=== PATIENT | male | born 1990 | race Caucasian/White ===

== ENCOUNTER 2016-08-30 14:57 | Emergency (ER) | payer BC, MEDICAID, OTHER ==
[2016-08-30] MEDS ORDERED: CEPHALEXIN 250 MG CAP As Ordered ONE (16:44)
[2016-08-30] MEDS ORDERED: IBUPROFEN 800 MG TAB As Ordered ONE (16:45)
[2016-08-30] MEDS ORDERED: ADACEL/BOOSTRIX VACCINE (DIPHTH/PERTUSS/ACELL/TETANUS)0.5ML SYR (90715) As Ordered ONE (16:45)
--- NOTE | 2016-08-30 17:36 | REP ---
RIGHT FINGERS, FOUR VIEWS: HISTORY: Trauma. There is no acute fracture or dislocation. The joint spaces are normal in appearance. IMPRESSION: There is no acute fracture or dislocation. Signed by Chance Camarena MD 08/31/2016 08:20 A
--- NOTE | 2016-08-30 18:29 | EDDOCDS ---
Nurse's Notes [facility] Name: Juan Antonio Flanagan Age: 25 yrs Sex: Male : 1990 Arrival Date: 08/30/2016 Time: 14:57 Bed I1 / M1 Private MD: NO PRIMARY PHYSICIAN, . Diagnosis: Laceration without foreign body of right index finger with damage to nail;Laceration without foreign body of right ring finger without damage to nail Presentation: 08/30 15:12 Presenting complaint: Patient states: "lacerations to the fingers from a snowblower" . ttb Occurred around 2pm. Right 3rd and 4th fingers. Bleeding controlled. NAD noted. Adult Sepsis Screening: The patient does not have new or worsening altered mentation. Patient's respiratory rate is less than 22. Systolic blood pressure is greater than 100. Patient has a qSOFA score of 0- Negative Sepsis Screen. Suicide/Homicide risk assessment- the patient denies having any suicidal and/or homicidal ideations and does not present with any other emotional, behavioral or mental health complaints. Status: Patient is not a college service officer or dependent. Transition of care: patient was not received from another setting of care. 15:12 Acuity: LIBAN Level 4 ttb 15:12 Method Of Arrival: Ambulance ttb Triage Assessment: 15:14 General: Appears in no apparent distress, well nourished, well groomed, Behavior is ttb appropriate for age, cooperative, pleasant. Pain: Location: right hand, fingers Pain currently is 2 out of 10 on a pain scale. HIV screening NA for this visit Offered previously. Neurological: Level of Consciousness is awake, alert. Cardiovascular: Chest pain is denied. Respiratory: No deficits noted. Airway is patent Respiratory effort is even, unlabored, Denies cough, shortness of breath. Derm: Skin is normal, pt states laceration to fingers. Musculoskeletal: Range of motion limited in right 3rd and 4th fingers per pt dt pain. 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 Historical: - Allergies: no known allergies; - Home Meds: 1. none - PMHx: none; - PSHx: skin graphs; - Social history: Smoking status: Patient uses tobacco products, heavy tobacco smoker. Patient/guardian denies using alcohol, street drugs, No barriers to communication noted, The patient speaks fluent [place] Island[place], Speaks appropriately for age. - Family history: Not pertinent. - : The pt / caregiver states he / she is not on anticoagulants. Home medication list is obtained from the patient. - Exposure Risk Screening:: None identified. - Tetanus status: unknown. Screenin:27 Screening information is obtained from the patient. Fall risk: No risks identified. rs3 Assistance ADL's: requires no assistance with activities of daily living. Abuse/DV Screen: The patient / caregiver reports he/she is: not in a situation that causes fear, pain or injury. Nutritional screening: No deficits noted. Advance Directives: Currently, there is no health care proxy. home support is adequate. Assessment: 18:24 General: Appears in no apparent distress, Behavior is appropriate for age. Pain: rs3 Location: right ring fingernail. Cardiovascular: Capillary refill < 3 seconds Heart tones S1 S2. Respiratory: Airway is patent Respiratory effort is even, unlabored. Derm: Skin is pink, warm & dry. laceration to right 4th finger around nail bed. bleeding controlled with pressure. Vital Signs: 14:59 BP 154 / 80; Pulse 101; Resp 18 S; Temp 97.8(O); Pulse Ox 98% ; Weight 129.27 kg (R); gr2 Height 6 ft. 1 in. (185.42 cm) (R); Pain 4/10; 18:24 Pain 0/10; rs3 18:26 BP 137 / 78; Pulse 92; Resp 18; Temp 98(T); Pulse Ox 99% on R/A; Pain 0/10; rs3 14:59 Body Mass Index 37.60 (129.27 kg, 185.42 cm) gr2 Vitals: 14:59 Log In Time: August 30, 2016 at 14:59. gr2 ED Course: 14:58 Patient visited by Camilla Palacios. gr2 14:58 NO PRIMARY PHYSICIAN, . is Private Physician. gr2 14:58 Patient moved to Waiting gr2 15:02 Patient visited by Camilla Palacios. gr2 15:02 Patient moved to Pre RCE gr2 15:13 Triage Initiated ttb 15:15 Patient visited by Lety Sargent RN. ttb 15:52 Patient moved to Triage 1 kr3 16:24 Merari Murphy PA-C is PHCP. ef1 16:24 Yoana Mcgovern MD is Attending Physician. ef1 16:24 Patient visited by Merari Murphy PA-C. ef1 16:45 Patient moved to I1 / M1 ef1 17:11 Patient visited by Geovanna Patel RN. rs3 17:13 [facility] Payment Agreement was scanned into [employer] and attached to record. zo 17:50 Patient visited by Merari Murphy PA-C. ef1 18:11 Patient visited by Merari Murphy PA-C. ef1 18:11 Fingers Returned. EDMS 18:16 [facility] is Referral Physician. ef1 18:16 [facility]. ef1 18:27 The patient / caregiver is instructed regarding the plan of care and ED course. rs3 18:27 No IV's were initiated during this patient's visit. No procedures done that require rs3 assistance. 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 Lot #: [id number]. } Route: IM; Site: right deltoid; 16:52 Drug: Cephalexin 500 mg [cephalexin 250 mg capsule (2 caps)] Route: PO; ka4 16:52 Drug: Ibuprofen 800 mg [ibuprofen 800 mg tablet (1 tabs)] Route: PO; ka4 18:24 Follow up: Pain 0/10 Adult rs3 18:21 Drug: Bacitracin 1 applic [bacitracin zinc 500 unit/gram topical ointment (1 applic)] rs3 Route: Topical; Site: affected area; Order Results: Radiology Order: Fingers Test: Fingers REASON FOR EXAMINATION: Trauma; RIGHT FINGERS, FOUR VIEWS:; ; HISTORY: Trauma.; ; There is no acute fracture or dislocation. The joint spaces are normal in; appearance.; ; IMPRESSION:; There is no acute fracture or dislocation.; ; ; ; Unreviewed; Outcome: 18:16 Discharge ordered by Provider. ef1 18:27 Discharge Assessment: patient administered narcotics - no. The following High Risk rs3 Discharge criteria are identified: None. Discharged to home with family. Condition: stable. Discharge instructions given to patient, Instructed on discharge instructions, follow up and referral plans. medication usage, Demonstrated understanding of instructions, medications, Pt was receptive of discharge instructions/ teaching. Prescriptions given X 2. No special radiology studies were completed. Property :Personal belongings accompany Pt. 18:28 Patient left the ED. rs3 Signatures: Dispatcher [employer] EDMS Gilda Koroma,RN RN kr3 Guido Olguin Erica, PA-C PADavid ef1 Geovanna Patel RN RN rs3 Lety Sargent RN RN Camilla Greene gr2 Talia Sanford LPN LPN ka4 JAMES
--- NOTE | 2016-08-30 18:29 | EDDOCDS ---
Physician Documentation [facility] Name: Juan Antonio Flanagan Age: 25 yrs Sex: Male : 1990 Arrival Date: 08/30/2016 Time: 14:57 Bed I1 / M1 Private MD: NO PRIMARY PHYSICIAN, . Disposition: 08/30/16 18:16 Discharged to Home/Self Care. Impression: Laceration without foreign body of right index finger with damage to nail, Laceration without foreign body of right ring finger without damage to nail. - Condition is Stable. - Discharge Instructions: Laceration Care, Adult, [id number]. - Prescriptions for Ibuprofen 800 mg Oral Tablet - take 1 tablet by ORAL route every 8 hours As needed take with food; 30 tablet. Keflex 500 mg Oral Capsule - take 1 capsule by ORAL route every 8 hours for 10 days; 30 capsule. - Medication Reconciliation, Referral List Call for Appointment, Local Pharmacy Hours form. - Follow up: [facility] ; When: 1 - 2 days; Reason: Recheck today's complaints, Continuance of care. Follow up: Emergency Department; Reason: Worsening of conditions. Follow up: [facility]; When: Call to arrange an appointment; Reason: Further diagnostic work-up, Recheck today's complaints, Continuance of care. - Problem is new. - Symptoms have improved. Historical: - Allergies: no known allergies; - Home Meds: 1. none - PMHx: none; - PSHx: skin graphs; - Social history: Smoking status: Patient uses tobacco products, heavy tobacco smoker. Patient/guardian denies using alcohol, street drugs, No barriers to communication noted, The patient speaks fluent Monegasque, Speaks appropriately for age. - Family history: Not pertinent. - : The pt / caregiver states he / she is not on anticoagulants. Home medication list is obtained from the patient. - Exposure Risk Screening:: None identified. - Tetanus status: unknown. Vital Signs: 08/30 14:59 BP 154 / 80; Pulse 101; Resp 18 S; Temp 97.8(O); Pulse Ox 98% ; Weight 129.27 kg / gr2 284.99 lbs (R); Height 6 ft. 1 in. (185.42 cm) (R); Pain 4/10; 18:24 Pain 0/10; rs3 18:26 BP 137 / 78; Pulse 92; Resp 18; Temp 98(T); Pulse Ox 99% on R/A; Pain 0/10; rs3 14:59 Body Mass Index 37.60 (129.27 kg, 185.42 cm) gr2 Procedures: 18:15 Wound care to laceration located on dorsal aspect of distal phalanx of right middle ef1 finger, dorsal aspect of distal phalanx of right ring finger, right middle fingernail and right ring fingernail was cleaned with Hibiclens, irrigated with normal saline, dressed with Neosporin, 4X4s, Patient tolerated well. 18:16 Fracture care/splinting: Splint applied to right ring fingernail and right middle ef1 fingernail using finger splint, applied by nurse. Examined by me, post splint application: neurovascular intact, 2+ distal pulses palpable, brisk capillary refill noted, Patient tolerated well. MDM: 16:36 Wound Care ordered. ef1 16:36 Cephalexin 500 mg PO once ordered. ef1 16:36 Ibuprofen 800 mg PO once ordered. ef1 16:36 Tetanus- Diptheria-Acellular Pertussis 0.5 ml IM once; Routine booster 10-64yrs, >64 ef1 with child contact [place] [employer] ordered. 16:38 Fingers Ordered. EDMS 17:03 Financial registration complete. zo 17:13 [facility] Payment Agreement was scanned into [employer] and attached to record. zo 18:14 Dressing ordered. ef1 18:14 Splint ordered. ef1 18:16 Bacitracin Ointment 500 unit/g 1 applic Topical in affected area once ordered. 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 Lot #: [id number]. } Route: IM; Site: right deltoid; 16:52 Drug: Cephalexin 500 mg [cephalexin 250 mg capsule (2 caps)] Route: PO; ka4 16:52 Drug: Ibuprofen 800 mg [ibuprofen 800 mg tablet (1 tabs)] Route: PO; ka4 18:24 Follow up: Pain 0/10 Adult rs3 18:21 Drug: Bacitracin 1 applic [bacitracin zinc 500 unit/gram topical ointment (1 applic)] rs3 Route: Topical; Site: affected area; Signatures: Dispatcher [employer] EDMS Guido Olguin Erica, PA-C PADavid ef1 Geovanna Patel RN RN rs3 Lety Sargent RN RN ttb Anderson, Kodie LPN ka4 The chart was reviewed and I authenticate all verbal orders and agree with the evaluation and treatment provided.Attachments: 17:13 [facility] Payment Agreement zo MTDD
--- NOTE | 2016-09-01 19:28 | EDDOCDS ---
Physician Documentation [facility] Name: Juan Antonio Flanagan Age: 25 yrs Sex: Male : 1990 Arrival Date: 08/30/2016 Time: 14:57 Bed I1 / M1 Private MD: NO PRIMARY PHYSICIAN, . Disposition: 08/30/16 18:16 Discharged to Home/Self Care. Impression: Laceration without foreign body of right index finger with damage to nail, Laceration without foreign body of right ring finger without damage to nail. - Condition is Stable. - Discharge Instructions: Laceration Care, Adult, [id number]. - Prescriptions for Ibuprofen 800 mg Oral Tablet - take 1 tablet by ORAL route every 8 hours As needed take with food; 30 tablet. Keflex 500 mg Oral Capsule - take 1 capsule by ORAL route every 8 hours for 10 days; 30 capsule. - Medication Reconciliation, Referral List Call for Appointment, Local Pharmacy Hours form. - Follow up: [facility] ; When: 1 - 2 days; Reason: Recheck today's complaints, Continuance of care. Follow up: Emergency Department; Reason: Worsening of conditions. Follow up: [facility]; When: Call to arrange an appointment; Reason: Further diagnostic work-up, Recheck today's complaints, Continuance of care. - Problem is new. - Symptoms have improved. Historical: - Allergies: no known allergies; - Home Meds: 1. none - PMHx: none; - PSHx: skin graphs; - Social history: Smoking status: Patient uses tobacco products, heavy tobacco smoker. Patient/guardian denies using alcohol, street drugs, No barriers to communication noted, The patient speaks fluent Kitt[place], Speaks appropriately for age. - Family history: Not pertinent. - : The pt / caregiver states he / she is not on anticoagulants. Home medication list is obtained from the patient. - Exposure Risk Screening:: None identified. - Tetanus status: unknown. Vital Signs: 08/30 14:59 BP 154 / 80; Pulse 101; Resp 18 S; Temp 97.8(O); Pulse Ox 98% ; Weight 129.27 kg / gr2 284.99 lbs (R); Height 6 ft. 1 in. (185.42 cm) (R); Pain 4/10; 18:24 Pain 0/10; rs3 18:26 BP 137 / 78; Pulse 92; Resp 18; Temp 98(T); Pulse Ox 99% on R/A; Pain 0/10; rs3 14:59 Body Mass Index 37.60 (129.27 kg, 185.42 cm) gr2 Procedures: 18:15 Wound care to laceration located on dorsal aspect of distal phalanx of right middle ef1 finger, dorsal aspect of distal phalanx of right ring finger, right middle fingernail and right ring fingernail was cleaned with Hibiclens, irrigated with normal saline, dressed with Neosporin, 4X4s, Patient tolerated well. 18:16 Fracture care/splinting: Splint applied to right ring fingernail and right middle ef1 fingernail using finger splint, applied by nurse. Examined by me, post splint application: neurovascular intact, 2+ distal pulses palpable, brisk capillary refill noted, Patient tolerated well. MDM: 16:36 Wound Care ordered. ef1 16:36 Cephalexin 500 mg PO once ordered. ef1 16:36 Ibuprofen 800 mg PO once ordered. ef1 16:36 Tetanus- Diptheria-Acellular Pertussis 0.5 ml IM once; Routine booster 10-64yrs, >64 ef1 with child contact [place] [employer] ordered. 16:38 Fingers Ordered. EDMS 17:03 Financial registration complete. zo 17:13 [facility] Payment Agreement was scanned into [employer] and attached to record. zo 18:14 Dressing ordered. ef1 18:14 Splint ordered. ef1 18:16 Bacitracin Ointment 500 unit/g 1 applic Topical in affected area once ordered. ef1 08/31 07:15 T-Sheet-- Draft Copy was scanned into [employer] and attached to record. gb 11:51 Radiology Report was scanned into [employer] and attached to record. 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 Lot #: [id number]. } Route: IM; Site: right deltoid; 16:52 Drug: Cephalexin 500 mg [cephalexin 250 mg capsule (2 caps)] Route: PO; ka4 16:52 Drug: Ibuprofen 800 mg [ibuprofen 800 mg tablet (1 tabs)] Route: PO; ka4 18:24 Follow up: Pain 0/10 Adult rs3 18:21 Drug: Bacitracin 1 applic [bacitracin zinc 500 unit/gram topical ointment (1 applic)] rs3 Route: Topical; Site: affected area; Signatures: Dispatcher [employer] EDMS Elaine Garrido, Reg Reg gb Jennings, Merari Stanley, PAAngelitaC PADavid ef1 Geovanna Patel RN RN rs3 Lety Sargent RN RN Talia Manuel LPN ka4 The chart was reviewed and I authenticate all verbal orders and agree with the evaluation and treatment provided.Attachments: 17:13 [facility] Payment Agreement zo 08/31 07:15 T-Sheet-- Draft Copy gb Chart Complete MTDD
--- NOTE | 2016-09-01 19:28 | EDDOCDS ---
Physician Documentation [facility] Name: Juan Antonio Flanagan Age: 25 yrs Sex: Male : 1990 Arrival Date: 08/30/2016 Time: 14:57 Bed I1 / M1 Private MD: NO PRIMARY PHYSICIAN, . Disposition: 08/30/16 18:16 Discharged to Home/Self Care. Impression: Laceration without foreign body of right index finger with damage to nail, Laceration without foreign body of right ring finger without damage to nail. - Condition is Stable. - Discharge Instructions: Laceration Care, Adult, [id number]. - Prescriptions for Ibuprofen 800 mg Oral Tablet - take 1 tablet by ORAL route every 8 hours As needed take with food; 30 tablet. Keflex 500 mg Oral Capsule - take 1 capsule by ORAL route every 8 hours for 10 days; 30 capsule. - Medication Reconciliation, Referral List Call for Appointment, Local Pharmacy Hours form. - Follow up: [facility] ; When: 1 - 2 days; Reason: Recheck today's complaints, Continuance of care. Follow up: Emergency Department; Reason: Worsening of conditions. Follow up: [facility]; When: Call to arrange an appointment; Reason: Further diagnostic work-up, Recheck today's complaints, Continuance of care. - Problem is new. - Symptoms have improved. Historical: - Allergies: no known allergies; - Home Meds: 1. none - PMHx: none; - PSHx: skin graphs; - Social history: Smoking status: Patient uses tobacco products, heavy tobacco smoker. Patient/guardian denies using alcohol, street drugs, No barriers to communication noted, The patient speaks fluent Tajik, Speaks appropriately for age. - Family history: Not pertinent. - : The pt / caregiver states he / she is not on anticoagulants. Home medication list is obtained from the patient. - Exposure Risk Screening:: None identified. - Tetanus status: unknown. Vital Signs: 08/30 14:59 BP 154 / 80; Pulse 101; Resp 18 S; Temp 97.8(O); Pulse Ox 98% ; Weight 129.27 kg / gr2 284.99 lbs (R); Height 6 ft. 1 in. (185.42 cm) (R); Pain 4/10; 18:24 Pain 0/10; rs3 18:26 BP 137 / 78; Pulse 92; Resp 18; Temp 98(T); Pulse Ox 99% on R/A; Pain 0/10; rs3 14:59 Body Mass Index 37.60 (129.27 kg, 185.42 cm) gr2 Procedures: 18:15 Wound care to laceration located on dorsal aspect of distal phalanx of right middle ef1 finger, dorsal aspect of distal phalanx of right ring finger, right middle fingernail and right ring fingernail was cleaned with Hibiclens, irrigated with normal saline, dressed with Neosporin, 4X4s, Patient tolerated well. 18:16 Fracture care/splinting: Splint applied to right ring fingernail and right middle ef1 fingernail using finger splint, applied by nurse. Examined by me, post splint application: neurovascular intact, 2+ distal pulses palpable, brisk capillary refill noted, Patient tolerated well. MDM: 16:36 Wound Care ordered. ef1 16:36 Cephalexin 500 mg PO once ordered. ef1 16:36 Ibuprofen 800 mg PO once ordered. ef1 16:36 Tetanus- Diptheria-Acellular Pertussis 0.5 ml IM once; Routine booster 10-64yrs, >64 ef1 with child contact [place] [employer] ordered. 16:38 Fingers Ordered. EDMS 17:03 Financial registration complete. zo 17:13 [facility] Payment Agreement was scanned into [employer] and attached to record. zo 18:14 Dressing ordered. ef1 18:14 Splint ordered. ef1 18:16 Bacitracin Ointment 500 unit/g 1 applic Topical in affected area once ordered. ef1 08/31 07:15 T-Sheet-- Draft Copy was scanned into [employer] and attached to record. gb 11:51 Radiology Report was scanned into [employer] and attached to record. 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 Lot #: [id number]. } Route: IM; Site: right deltoid; 16:52 Drug: Cephalexin 500 mg [cephalexin 250 mg capsule (2 caps)] Route: PO; ka4 16:52 Drug: Ibuprofen 800 mg [ibuprofen 800 mg tablet (1 tabs)] Route: PO; ka4 18:24 Follow up: Pain 0/10 Adult rs3 18:21 Drug: Bacitracin 1 applic [bacitracin zinc 500 unit/gram topical ointment (1 applic)] rs3 Route: Topical; Site: affected area; Signatures: Dispatcher [employer] EDMS Elaine Garrido, Reg Reg gb Scobey, Merari Stanley, PAAngelitaC PADavid ef1 Geovanna Patel RN RN rs3 Lety Sargent RN RN Talia Manuel LPN ka4 The chart was reviewed and I authenticate all verbal orders and agree with the evaluation and treatment provided.Attachments: 17:13 [facility] Payment Agreement zo 08/31 07:15 T-Sheet-- Draft Copy gb Chart Complete MTDD
--- NOTE | 2016-09-01 19:29 | EDDOCDS ---
Nurse's Notes [facility] Name: Juan Antonio Flanagan Age: 25 yrs Sex: Male : 1990 Arrival Date: 08/30/2016 Time: 14:57 Bed I1 / M1 Private MD: NO PRIMARY PHYSICIAN, . Diagnosis: Laceration without foreign body of right index finger with damage to nail;Laceration without foreign body of right ring finger without damage to nail Presentation: 08/30 15:12 Presenting complaint: Patient states: "lacerations to the fingers from a snowblower" . ttb Occurred around 2pm. Right 3rd and 4th fingers. Bleeding controlled. NAD noted. Adult Sepsis Screening: The patient does not have new or worsening altered mentation. Patient's respiratory rate is less than 22. Systolic blood pressure is greater than 100. Patient has a qSOFA score of 0- Negative Sepsis Screen. Suicide/Homicide risk assessment- the patient denies having any suicidal and/or homicidal ideations and does not present with any other emotional, behavioral or mental health complaints. Status: Patient is not a service agent or dependent. Transition of care: patient was not received from another setting of care. 15:12 Acuity: LIBAN Level 4 ttb 15:12 Method Of Arrival: Ambulance ttb Triage Assessment: 15:14 General: Appears in no apparent distress, well nourished, well groomed, Behavior is ttb appropriate for age, cooperative, pleasant. Pain: Location: right hand, fingers Pain currently is 2 out of 10 on a pain scale. HIV screening NA for this visit Offered previously. Neurological: Level of Consciousness is awake, alert. Cardiovascular: Chest pain is denied. Respiratory: No deficits noted. Airway is patent Respiratory effort is even, unlabored, Denies cough, shortness of breath. Derm: Skin is normal, pt states laceration to fingers. Musculoskeletal: Range of motion limited in right 3rd and 4th fingers per pt dt pain. Injury Description: cut fingers in vine pruner. Historical: - Allergies: no known allergies; - Home Meds: 1. none - PMHx: none; - PSHx: skin graphs; - Social history: Smoking status: Patient uses tobacco products, heavy tobacco smoker. Patient/guardian denies using alcohol, street drugs, No barriers to communication noted, The patient speaks fluent Mexican, Speaks appropriately for age. - Family history: Not pertinent. - : The pt / caregiver states he / she is not on anticoagulants. Home medication list is obtained from the patient. - Exposure Risk Screening:: None identified. - Tetanus status: unknown. Screenin:27 Screening information is obtained from the patient. Fall risk: No risks identified. rs3 Assistance ADL's: requires no assistance with activities of daily living. Abuse/DV Screen: The patient / caregiver reports he/she is: not in a situation that causes fear, pain or injury. Nutritional screening: No deficits noted. Advance Directives: Currently, there is no health care proxy. home support is adequate. Assessment: 18:24 General: Appears in no apparent distress, Behavior is appropriate for age. Pain: rs3 Location: right ring fingernail. Cardiovascular: Capillary refill < 3 seconds Heart tones S1 S2. Respiratory: Airway is patent Respiratory effort is even, unlabored. Derm: Skin is pink, warm & dry. laceration to right 4th finger around nail bed. bleeding controlled with pressure. Vital Signs: 14:59 BP 154 / 80; Pulse 101; Resp 18 S; Temp 97.8(O); Pulse Ox 98% ; Weight 129.27 kg (R); gr2 Height 6 ft. 1 in. (185.42 cm) (R); Pain 4/10; 18:24 Pain 0/10; rs3 18:26 BP 137 / 78; Pulse 92; Resp 18; Temp 98(T); Pulse Ox 99% on R/A; Pain 0/10; rs3 14:59 Body Mass Index 37.60 (129.27 kg, 185.42 cm) gr2 Vitals: 14:59 Log In Time: August 30, 2016 at 14:59. gr2 ED Course: 14:58 Patient visited by Camilla Palacios. gr2 14:58 NO PRIMARY PHYSICIAN, . is Private Physician. gr2 14:58 Patient moved to Waiting gr2 15:02 Patient visited by Camilla Palacios. gr2 15:02 Patient moved to Pre RCE gr2 15:13 Triage Initiated ttb 15:15 Patient visited by Lety Sargent RN. ttb 15:52 Patient moved to Triage 1 kr3 16:24 Merari Murphy PA-C is PHCP. ef1 16:24 Yoana Mcgovern MD is Attending Physician. ef1 16:24 Patient visited by Merari Murphy PA-C. ef1 16:45 Patient moved to I1 / M1 ef1 17:11 Patient visited by Geovanna Patel RN. rs3 17:13 [facility] Payment Agreement was scanned into [employer] and attached to record. zo 17:50 Patient visited by Merari Murphy PA-C. ef1 18:11 Patient visited by Merari Murphy PA-C. ef1 18:11 Fingers Returned. EDMS 18:16 [facility] is Referral Physician. ef1 18:16 [facility]. ef1 18:27 The patient / caregiver is instructed regarding the plan of care and ED course. rs3 18:27 No IV's were initiated during this patient's visit. No procedures done that require rs3 assistance. 08/31 07:15 T-Sheet-- Draft Copy was scanned into [employer] and attached to record. gb 11:51 Radiology Report was scanned into [employer] and attached to record. gb Administered Medications: 08/30 16:51 Drug: Tetanus- Diptheria-Acellular Pertussis 0.5 ml [diphth,pertussis(acel),tetanus 2.5 ka4 Lf unit-8 mcg-5 Lf/0.5mL IM syringe (0.5 mL)] {Summer Analyst: [employer]. Exp: 10/11/2018. Lot #: [id number]. } Route: IM; Site: right deltoid; 16:52 Drug: Cephalexin 500 mg [cephalexin 250 mg capsule (2 caps)] Route: PO; ka4 16:52 Drug: Ibuprofen 800 mg [ibuprofen 800 mg tablet (1 tabs)] Route: PO; ka4 18:24 Follow up: Pain 0/10 Adult rs3 18:21 Drug: Bacitracin 1 applic [bacitracin zinc 500 unit/gram topical ointment (1 applic)] rs3 Route: Topical; Site: affected area; Order Results: Radiology Order: Fingers Test: Fingers REASON FOR EXAMINATION: Trauma; RIGHT FINGERS, FOUR VIEWS:; ; HISTORY: Trauma.; ; There is no acute fracture or dislocation. The joint spaces are normal in; appearance.; ; IMPRESSION:; ; There is no acute fracture or dislocation.; ; ; Signed by; Chance Camarena MD 08/31/2016 08:20 A; Outcome: 18:16 Discharge ordered by Provider. ef1 18:27 Discharge Assessment: patient administered narcotics - no. The following High Risk rs3 Discharge criteria are identified: None. Discharged to home with family. Condition: stable. Discharge instructions given to patient, Instructed on discharge instructions, follow up and referral plans. medication usage, Demonstrated understanding of instructions, medications, Pt was receptive of discharge instructions/ teaching. Prescriptions given X 2. No special radiology studies were completed. Property :Personal belongings accompany Pt. 18:28 Patient left the ED. rs3 Signatures: Dispatcher [employer] EDMS Elaine Garrido, Anurag Reg Gilda Alba,RN RN kr3 Guido Olguin Erica, PA-C PA-C ef1 Geovanna Patel RN RN rs3 Lety Sargent RN RN Camilla Greene 2 Talia Sanford LPN LPN ka4 Chart Complete JAMES
== END 2016-08-30 18:28 | disposition home or self-care (01) ==
LOC: M ED 14:57
DX: S61.314A Laceration without foreign body of right ring finger with damage to nail, initial encounter (principal); W31.89XA Contact with other specified machinery, initial encounter; Y92.019 Unspecified place in single-family (private) house as the place of occurrence of the external cause; Y93.89 Activity, other specified; Y99.8 Other external cause status; Z72.0 Tobacco use

== ENCOUNTER 2016-12-05 22:43 | Emergency (ER) | payer OTHER, MEDICAID ==
[~2016-12-05] VITALS: Ht 185.4 cm; Wt 127.0 kg
[2016-12-05 22:48] VITALS: BP 140/92
[2016-12-05] MEDS ORDERED: NAPR500T PO (23:11)
[2016-12-05] MEDS ORDERED: KETOROLAC 60 MG/2 ML VIAL (J1885) IM ONE (23:15)
== END 2016-12-05 23:35 | disposition home or self-care (01) ==
LOC: M ED 23:13
DX: M54.5 Low back pain (principal)